=== PATIENT | male | born 1975 | race Caucasian/White ===

== ENCOUNTER → 2022-12-01 | Outpatient (CLI) | payer BC ==
[~2022-12-01] MED LIST: CEPH500 PO; CRUTCH2 USE; HYDACE5 PO
== END | disposition home or self-care (01) ==
LOC: LAB SHORT 12:18 → LAB 12:18 → PLD 12:18
DX: D22.4 Melanocytic nevi of scalp and neck (principal)
CPT/HCPCS: 88305